=== PATIENT | female | born 1970 | race Caucasian/White ===

== ENCOUNTER 2016-03-22 11:04 | Observation (INO) ==
[~2016-03-22 11:04] MED LIST: *HR* Metoprolol 5 MG/5 ML VIAL IVP ONE
[2016-03-22] MEDS ORDERED: Naloxone 0.4 MG/ML INJ IVP PRN (12:22)
[2016-03-22] MEDS ORDERED: Acetaminophen 325 MG TABLET PO PRN (12:22)
--- NOTE | 2016-03-22 12:34 | Cardiology History & Physical ---
Date of Encounter: 03/22/16 Time of Encounter: 10:00 Assessment and Plan (1) Ventricular tachycardia Current Visit: Yes Status: Acute Per Cardiology: History of PVCs with bigeminy on recent Holter. Significant runs of ventricular tachycardia in recovery phase of exercise nuclear stress test today. Seen and examined with Dr. Vargas with recs for direct admission for further ischemic evaluation in terms of left heart catheterization. Ventricular tachycardia overall improved with IV fluids and his cannula oxygen. Patient did not require fibrillation, resuscitation, denied experiencing any loss of consciousness. Discussed and reviewed with Dr. Chavez and Dr. Omer, labs pending and left heart catheterization today. Has outpatient echocardiogram already completed and awaiting to be read today. The assessment and plan as outlined above was discussed with the patient and/or family members who expressed understanding and agreement. All questions were answered. History of Present Illness Chief complaint: CP HPI: Ms. Huang is a 46 year old female female seen today in outpatient setting during stress test. Patient seen by Dr. Marcia Colunga March 10, 2016 and ordered stress test and echocardiogram. Patient noted to have multiple PVCs on recent Holter and beta linda was increased. She has a relevant past medical history of anxiety with panic attacks, GERD, and PVCs. Additionally, she smokes one pack per day of cigarettes for 36 years. Patient reports had been experiencing short of breath, fatigue, dizziness, and palpitations with chest tightness. During stress test, patient was noted to have significant runs of ventricular tachycardia during recovery. Improved with application of nasal cannula oxygen. Seen with Dr. Vargas. Patient continued to have frequent episodes of nonsustained VT, bigeminy, and trigeminy. Patient directly admitted for further ischemic evaluation today regarding her V. tach. Patient denies any episodes of syncope or falls. Denies any active bleeding or blood loss. Reports has never had cardiac catheterization in the past. Family history reported with father with pacemaker. Past Med Surg Social Fam HX - Past Medical History Attestation: Yes The following information was validated with the patient. Source: patient, old records reviewed, obtained from family Medical history: GERD, other (PVCs) Psychiatric history: anxiety, panic disorder - Past Surgical History Surgical History: no surgical history - Social History Smoking Status: Current every day smoker Packs per day: 1ppd since age 10, has smoked 36 years - Family History Father Hx Family Cardiac Disorders: Yes (pacer) All Systems Review: A 10-system review of systems was performed and is negative for pertinent findings except as documented above in the HPI. - Constitutional Constitutional: fatigue - Cardiovascular Cardiovascular: as per HPI, chest pain with exertion, dyspnea on exertion, lightheadedness - Psychiatric Psychiatric: anxiety, panic attacks Physical Examination Vital Signs, Last 4 Hours Temp Pulse Resp BP Pulse Ox 03/22/16 12:10 99.3 F 95 16 121/77 97 General: Conversant, Other (anxious) HEENT: Atraumatic, Normocephaly, Mucus Membranes Moist Neck: No JVD, Normal carotid pulses Cardiac: Reg Rate and Rhythm, Normal S1 and S2, No Murmur Lungs: Normal Breath Sounds, No Wheeze, Rales, Rhonchi Neuro: Alert and responsive, No focal deficits noted Abdomen: Soft, Non-Tender Skin: No rashes noted on visualized skin Musculoskeletal: No Chest Wall Tenderness Extremities: No Edema, Normal Pulses Results Labs pending Active Medications Acetaminophen (Tylenol) 650 mg PO Q6HR PRN PRN Reason: Mild Pain (1-3) Stop: 09/21/16 12:23 Naloxone HCl (Narcan) 0.4 mg IVP Q2MIN PRN PRN Reason: Opioid Reversal Stop: 09/21/16 12:23 - EKG Interpretation EKG results cardiology: personally reviewed (VT noted during stress test)
[2016-03-22] MEDS ORDERED: Verapamil 5 MG/2 ML VIAL ONE (14:04)
[2016-03-22] MEDS ORDERED: Heparin 1,000 UNITS/500 mL NS 500 ML ONE (14:05)
[2016-03-22] MEDS ORDERED: Nitroglycerin 1,000 MCG/10 ML VIAL IV ONE (14:05)
[2016-03-22] MEDS ORDERED: 0.9 % Sodium Chloride 1,000 ML ONE ×2 (14:05→14:19)
[2016-03-22] MEDS ORDERED: *HR* Heparin 10,000 UNIT/10 ML VIAL ONE (14:05)
[2016-03-22 14:16] LABS: Basophils # 0.1 K/mcL (0.0-0.2); Basophils % 0.4 %; Eosinophils # 0.1 K/mcL (0.0-0.6); Eosinophils % 0.6 %; Hematocrit 40.7 % (35.3-44.9); Hemoglobin 13.8 g/dL (11.5-15.4); Immature Granulocytes % 0.4 % (0-4); Lymphocytes # 3.1 K/mcL (0.6-4.6); Lymphocytes % 22.8 %; Mean Corpuscular HGB Conc 33.9 g/dL (31.6-35.5); Mean Corpuscular Hemoglobin 30.7 pg (28.0-33.3); Mean Corpuscular Volume 90.6 fL (83.0-100.0); Mean Platelet Volume 9.9 fL (9.4-12.4); Monocytes # 0.7 K/mcL (0.0-1.3); Monocytes % 5.2 %; Neutrophils # 9.6 K/mcL (1.6-8.9); Platelet Count 275 K/mcL (140-400); Red Blood Count 4.49 M/mcL (3.82-4.97); Red Cell Distribution Width 11.9 % (11.5-14.5); Segmented Neutrophils % 70.6 %
[2016-03-22 14:21] LABS: INR 1.1; Prothrombin Time 12.1 Seconds (9.4-12.1)
[2016-03-22] MEDS ORDERED: *HR* FentaNYL (PF) 100 MCG/2 ML VIAL ONE (14:28)
[2016-03-22] MEDS ORDERED: *HR* Midazolam HCl 2 MG/2 ML VIAL ONE ×2 (14:28→14:43)
[2016-03-22 14:30] LABS: BUN/Creatinine Ratio 13 (6-26); Blood Urea Nitrogen 8 mg/dL (7-20); Calcium 8.8 mg/dL (8.6-10.8); Carbon Dioxide 19 mEq/L (19-29); Chloride 111 mEq/L (98-109); Glucose 100 mg/dL (70-99); Osmolality,Calculated 284 (280-300); Potassium 3.9 mEq/L (3.5-4.5); Sodium 138 mEq/L (136-145); eGFR For African Americans > 60 (> 60); eGFR For Non-African Americans > 60 (> 60)
--- NOTE | 2016-03-22 15:06 | Invasive Diagnostic Lab Proc ---
Name: Jessica Huang Date of Study: 03/22/2016 Date: 1970 Ht: 66.0in Medical Record#: [id number] Age: 46 Wt: 187.39lb Gender: Female BSA: 1.95 Order #: [id number] BMI: 30.26 Physicians Procedure Physician: Ignacio Omer MD, [facility] Referring MD: Fallon Connolly MD Referring MD: Staff Name Position Time In Karine Castellanos RT Scrub 02:25 PM Lisa Finnegan RN Shooter'S Helper 02:25 PM Sites, Ghislaine RT (R) Monitor 02:25 PM Lisa Finnegan RN Monitor 02:25 PM Indications Indication VT Procedures Performed Procedure L HRT ARTERY/VENTRICLE ANGIO Pre-Procedure Checklist Informed consent is complete signed and on chart. H\\T\\P is on chart. ID band is on and ID verified with patient. Patient NPO for procedure The procedure was described for the patient and questions were answered. ECG is on chart. Plan of Care Patient will tolerate the procedure without complications. Adequate level of comfort will be maintained. Hemodynamics will remain stable Patient will recover from procedure without complications. Respiratory function will be maintained. Cardiac rhythm will remain stable. Patient temperature will be maintained. Patient and/or family have verbalized understanding of the procedure. Patient Education Chief Complaint/Reason for Test: Cardiac Cath Developmental Category: Adult (18-64 years) Developmentally Appropriate for Age: Yes Learning Barriers: None Education Needs: Procedure Education Method: Verbal Information Taught: Cardiac Cath Educational Evaluation: Able to repeat information Intravenous Access Time IV Size Location DC'd Fluid/Drip Rate Units RN 02:23 PM 22g 1" Patent On Arrival Rt Hand 0.9NaCl 25ML/HR Lisa Finnegan RN Allergies NKA PCN (penicillin) Vital Signs Time BP (mmHg) HR (bpm) O2 Sat. RR (bpm) LOC 02:24 PM 121 / 77 95 97 % 16 5 = Fully awake and oriented or at pre-proc level 02:26 PM / % 5 = Fully awake and oriented or at pre-proc level 02:30 PM 128 / 78 89 98 % 02:34 PM 132 / 76 97 97 % 13 02:39 PM 126 / 74 78 98 % 17 02:44 PM 131 / 76 93 97 % 21 02:49 PM 114 / 82 88 95 % 18 Procedural Medications Time Medication Dose Units Method Given By 02:26 PM Oxygen 2 L/min nasal cannula Lisa Finnegan RN 02:30 PM Versed 2 mg Intravenous Lisa Finnegan RN 02:30 PM Fentanyl 50 mcg Intravenous Lisa Finnegan RN 02:38 PM Lidocaine 2% 0.5 ml Subcutaneous Ignacio Omer MD, FAC 02:41 PM Heparin 4000 units Nitroglycerin 200 mcg Verapamil 2.5 mg Intraarterial Ignacio Omer MD, FAC 02:43 PM Versed 2 mg Intravenous Lisa Finnegan RN 02:43 PM Fentanyl 25 mcg Intravenous Lisa Finnegan RN ASA Classification: CLASS II- Mild systemic disease (i.e. well-controlled diabetes, hypertension, asthma, cigarette smoking) Aurelia Score Preprocedure Postprocedure Activity 2- Moves 4 extremities sustained head lift Activity 2- Moves 4 extremities sustained head lift Circulation 2- SBP +/= 20 points of pre-anesthetic level Circulation 2- SBP +/= 20 points of pre-anesthetic level Consciousness 2- Awake and alert oriented x 3 Consciousness 2- Awake and alert oriented x 3 O2 Saturation 2- Able to maintain O2 satruation of 92% on room air O2 Saturation 2- Able to maintain O2 satruation of 92% on room air Respiratory 2- Able to deep breathe and cough well Respiratory 2- Able to deep breathe and cough well Total Score 10 Total Score 10 Contrast Agent: Isovue Diagnostic Contrast: 52 ml Total Contrast: 52 ml Fluoro Dose: 113 mGy Procedure Log Time Note Enter By 02:21 PM CathStat 02:25 PM Pt arrived to [employer] 2 at 14:25 [email or web address] 02:25 PM Physician arrived 14:25 02:25 PM Meet and mary completed 02:25 PM Sign in performed according to hospital policy. 02:25 PM Procedure start 14:25 kk 02:25 PM Karine Castellanos RT Position: Scrub Time in: 14:25 ner 02:25 PM Lisa Finnegan RN Position: Shooter'S Helper Time in: 14:25 kk 02:25 PM Ghislaine Busby RT (R) Position: Monitor Time in: 14:25 [email or web address] 02:25 PM Lisa Finnegan RN Position: Monitor Time in: 14:25 [email or web address] 02:25 PM Patient charges- Angio tray pack, Navilyst 3mm J, Pulse Oximetry and ACIST tubing and transducer Case Delayed No Time: : Oxygen on at 2 L/min per nasal cannula by Lisa Finnegan RN Time: 14: Patient comfortable and pain free: Yes Time: :LOC: 5 = Fully awake and oriented or at pre-proc level Clinical Presentation: Unstable angina PM Vitals capture started with the following parameters, Patient=Adult, Interval=5 min, Initial Rilrscvh=970 mmHg, Deflation Rate=5 mmHg, Cuff placed on Right Arm : PM Vitals capture started with the following parameters, Patient=Adult, Interval=5 min, Initial Fegqpbwa=500 mmHg, Deflation Rate=5 mmHg, Cuff placed on Right Arm : PM Recorded ECG: HR=90 Condition=Condition 1 02: PM NIBP STAT measurement started. : PM Vitals capture stopped. : PM Vitals capture started with the following parameters, Patient=Adult, Interval=5 min, Initial Adfochqg=394 mmHg, Deflation Rate=5 mmHg, Cuff placed on Right Arm 02:30 PM HR=89 bpm, KMVY=308/78 mmhg, SpO2=98.0 % 02:30 PM Time: 14:30 Versed 2 mg Intravenous Given by Lisa Finnegan RN 02:30 PM Time: 14:30 Fentanyl 50 mcg Intravenous Given by Lisa Finnegan RN 02:34 PM HR=97 bpm, SDET=518/76 mmhg, SpO2=97.0 %, Resp=13 B/min 02:35 PM Pressure channel 1 zeroed. 02:38 PM Time out performed according to hospital policy tsites 02:38 PM Time: 14:38 0.5 ml Lidocaine 2% to right radial Subcutaneous Given by Ignacio Omer MD, [facility] tsites 02:39 PM HR=78 bpm, GHLI=008/74 mmhg, SpO2=98.0 %, Resp=17 B/min 02:41 PM Access obtained by percutaneous puncture. 5Fr 10cm Terumo Glidesheath sheath placed in right Radial artery. [id number] tsites 02:41 PM Time: 14:41 Patient given 4,000 units Heparin, 200 mcg Nitroglycerin, and 2.5 mg Verapamil Intraarterial by Ignacio Omer MD, [facility] tsites 02:42 PM 0.035 260cm Navilyst 3mmJ wire [id number] tsites 02:42 PM 5Fr TIG catheter inserted over the wire DN tsites 02:43 PM Wire removed tsites 02:43 PM Time: 14:43 Versed 2 mg Intravenous Given by Lisa Finnegan RN tsites 02:43 PM Time: 14:43 Fentanyl 25 mcg Intravenous Given by Lisa Finnegan RN tsites 02:44 PM HR=93 bpm, PODC=445/76 mmhg, SpO2=97.0 %, Resp=21 B/min 02:44 PM RCA angiography performed in multiple views. tsites 02:44 PM Recorded Pressure: Ao, HR=96, Condition=Condition 1 (Aorta) Ao 110/90/100 02:45 PM wire reinserted catheter removed tsites 02:45 PM 5Fr FL3.5 catheter inserted over the wire [id number] tsites 02:46 PM Wire removed tsites 02:46 PM LCA angiography performed in multiple views. tsites 02:46 PM Recorded Pressure: Ao, HR=88, Condition=Condition 1 (Aorta) Ao 43/27/35 02:48 PM wire reinserted catheter removed tsites 02:48 PM 5Fr Pigtail catheter inserted over the wire DN tsites 02:49 PM HR=88 bpm, SMIF=666/82 mmhg, SpO2=95.0 %, Resp=18 B/min 02:49 PM Lesion found in Mid Circumflex. Pre Stenosis: 20 Pre THADDEUS Flow: tsites 02:49 PM Lesion found in Mid LAD. Pre Stenosis: 15 Pre THADDEUS Flow: tsites 02:49 PM Mid/Distal Left Anterior Descending Coronary Artery and diagonal branches with 15% stenosis. If graft is supplying this area, % stenosis tsites 02:50 PM Recorded Pressure: LV, HR=82, Condition=Condition 1 (Left Ventricle) LV 114/11/40 02:50 PM Recorded Pressure: LV, Ao, US=432, Condition=Condition 1 (Left Ventricle) LV 113/8/27, (Aorta) Ao 125/74/99 02:51 PM Catheter selectively placed in left ventricle tsites 02:51 PM Bolus angiogram of left Ventricle complete: 10 ml/sec for a total of 30 mls tsites 02:51 PM Coronary Dominance: right tsites 02:51 PM Catheter removed tsites 02:51 PM Circumflex, Obtuse Marginal, Left Posterior Descending, and Left Posterolateral Coronary Arteries with 20 % stenosis. If graft is supplying this area, % stenosis tsites 02:51 PM Procedure completed at 14:51 tsites 02:52 PM Sign out completed: Radiation Dose 113 mGy Fluoro Time: 2.2 Isovue 370 - 200ml contrast 52 ml given by Ignacio Omer MD, [facility]. Complications: NoneCardiac Rehab Consult needed: NoConfirmed administered medications: Yes tsites 02:52 PM Isovue 370 - 200ml,1 Bottle(s) used. tsites 02:52 PM Arterial sheath pulled, Vasc Band closure device used and was Successful S/N. tsites 02:52 PM 12 ml air in Vasc Band. tsites 02:53 PM Post ECG NSR tsites 02:54 PM Post Blood Pressure 114/82 tsites 02:54 PM 14:54 Post Pulses Rt Radial 1+ tsites 02:54 PM Information taught Cardiac Cath and Vasc Band tsites 02:54 PM Education needs Procedure, Plan of Care, and Responsibilities of Patient in Care tsites 02:54 PM Learning barriers :None tsites 02:54 PM Education Methods Verbal tsites 02:54 PM Education evaluation Able to repeat information tsites 02:54 PM Site status No bleeding/hematoma - Rt Wrist as reported by Karine Castellanos RT at 14:54 tsites 02:54 PM Opsite applied tsites 02:55 PM Delay to floor No tsites 02:55 PM Patient out of room: 14:55 tsites 02:58 PM Report given to ervin RN Pt taken to 2NE Room #25. 14:58 tsites Complications Complication None Hemodynamics Pressures Site Systolic/A Wave Diastolic/V Wave Mean AO 110 90 100 AO 43 27 35 LV 114 11 40 LV 113 8 27 AO 125 74 99 Post Procedure Information Blood Pressure: 114/82 mmHg Rhythm: NSR Post procedural instructions were given Closure Device Time Device Success/Fail 03/22/2016 2:55:00 PM Mechanical Compression Successful Site Checks Time Location Status Staff Sheath In? Note 02:54 PM Rt Wrist No bleeding/hematoma Karine Castellanos RT Pulses Time Site Pre-Procedure Post-Procedure Note 03/22/2016 2:24:00 PM Bilateral DP \\T\\ PT 2+ 03/22/2016 2:24:00 PM Bilateral radial 2+ 2:54:00 PM Rt Radial 1+ Updated by Ghislaine Kehinde, RT (R) on 03/22/2016 2:59:57 PM Ghislaine Kehinde, RT electronically signed on 03/22/2016 3:02:20 PM with status of Final
--- NOTE | 2016-03-22 15:16 | Invasive Diagnostic Lab ---
Name: Jessica Huang Date of Study: 03/22/2016 Date: 1970 Ht: 167.6 cm /66.0 in Medical Record#: [id number] Age: 46 Wt: 85. kg / 187.39 lb Account/Order#: [id number] Gender: Female BSA: 1.95 Order #: [id number] Fluoro Dose: 113 mGy BMI: 30.26 Procedure Physician: Ignacio Omer MD, [facility] Referring MD: Fallon Connolly MD Referring MD: Procedures Performed: LEFT HEART CATH Indications: VENTRICULAR TACHYCARDIA ABNORMAL STRESS TEST Impressions: Minimal coronary artery disease. The left ventricle is normal and has normal contractility EF 55% Recommendations: Optimal medical therapy of patient's disease. Aggressive risk factor modification. History/Risk Factors: VT anxiety GERD PVS SOB Current/Recent Smoker Procedure Access obtained in the right Radial artery by percutaneous puncture Complications: None Contrast: Isovue 52ml Closure Device: Mechanical Compression Hemodynamics: Pressures Site Systolic/ A Wave Diastolic/ V Wave End Diastolic/ Mean HR AO 110 90 100 96 AO 43 27 35 88 LV 114 11 40 82 LV 113 8 27 122 AO 125 74 99 81 LV Ventriculography Ejection Method: LV Gram Ejection Fraction: 55% Wall Motion: CASTRO Anterobasal Normal Anterolateral Normal Apical: Normal Inferoapical Normal Inferobasal Normal Coronary Dominance: right Lesion Findings/Interventions * Left Main Coronary Artery The LMCA is angiographically free of disease. * Left Anterior Descending There is a 15% stenosis in the Mid LAD. * Circumflex There is a 20% stenosis in the Mid Circumflex. * Right Coronary Artery The RCA is angiographically free of disease. The Right PDA is angiographically free of disease. Updated by Ghislaine Busby RT (R) on 03/22/2016 3:00:40 PM Ignacio Omer MD, FACC electronically signed on 03/22/2016 3:09:54 PM with status of Final
[2016-03-22] MEDS: Clotrimazole/Betameth Dip CRM 45 APPL/45 GM TUBE TP SCH (20:48)
[2016-03-22] MEDS ORDERED: MELATONIN PO SCH (21:00)
[2016-03-22] MEDS ORDERED: PYRIDOXINE HCL PO SCH (21:00)
[2016-03-22] MEDS: ALPRAZolam 0.5 MG TABLET PO PRN (23:28)
[2016-03-23] MEDS ORDERED: *HR* Enoxaparin 40 MG/0.4 ML SYRINGE SQ SCH (06:00)
[2016-03-23] MEDS ORDERED: [UNRECOGNIZED DRUG - OTHER] PO SCH (09:00)
[2016-03-23] MEDS ORDERED: [UNRECOGNIZED DRUG - OTHER] PO SCH (09:00)
[2016-03-23] MEDS ORDERED: VITAMIN E 100 UNIT PO SCH (09:00)
[2016-03-23] MEDS ORDERED: FISH OIL PO SCH (09:00)
[2016-03-23] MEDS ORDERED: BORAGE PO SCH (09:00)
[2016-03-23] MEDS ORDERED: Famotidine 20 MG TABLET PO SCH (09:00)
[2016-03-23] MEDS ORDERED: FLAX PO SCH (09:00)
[2016-03-23] MEDS ORDERED: Aspirin Enteric Coated 81 MG Tablet PO SCH (09:00)
[2016-03-23] MEDS ORDERED: Loratadine 10 MG TABLET PO SCH (09:00)
[2016-03-23] MEDS: Clotrimazole/Betameth Dip CRM 45 APPL/45 GM TUBE TP SCH (09:54)
[2016-03-23] MEDS: ALPRAZolam 0.5 MG TABLET PO PRN (10:01)
--- NOTE | 2016-03-23 10:33 | Cardiology Progress Note ---
Date of Encounter: 03/23/16 Time of Encounter: 10:00 Assessment and Plan (1) Ventricular tachycardia Current Visit: Yes Status: Acute Per Cardiology: History of PVCs with bigeminy on recent Holter. Significant runs of ventricular tachycardia in recovery phase of exercise nuclear stress test today. S/p LHC-- mid circumflex 20% and mid LAD 15% stenosis. Echocardiogram showed EF preserved 60%, mild diastolic dysfunction, no significant valvular dysfunction, no segmental wall motion abnormalities. TSH ok, Mg pending. Telemetry shows no further recurrence of VT. Patient had been taking Lopressor 25 mg every morning 50 mg every evening. Currently on 50 mg by mouth twice a day and currently systolic blood pressure in the 110s. Rhythm strips reviewed and discussed with Dr. Maxx Colunga with recommendations for outpatient cardiac MRI in follow-up for possible EP study. Discussed with Dr. Freitas and babita to proceed with outpatient cardiac MRI. Will have ambulate hallway today and possible discharge today if able. (2) CAD (coronary artery disease) Current Visit: Yes Status: Acute Per Cardiology: Status post catheterization showing nonobstructive CAD. On beta linda and aspirin. Qualifiers: Coronary Disease-Associated Artery/Lesion type: [place] artery [place] vs. transplanted heart: [place] heart Associated angina: without angina Qualified Code(s): I25.10 - Atherosclerotic heart disease of [place] coronary artery without angina pectoris Discussion w patient/family: The assessment and plan as outlined above was discussed with the patient and/or family members who expressed understanding and agreement. All questions were answered. Thank you for involving us in the care of your patient. Please call with any questions. Subjective Principal diagnosis: VT Interval history: Patient denies any concerns or complaints overnight. Denies any chest pain, short of breath, dizziness, syncope, falls. Denies any concerns with her right wrist site. Objective Vital Signs, Last 4 Hours Temp Pulse Resp BP Pulse Ox 03/23/16 09:45 94 L 03/23/16 08:30 98.4 F 03/23/16 07:13 100.0 F H 86 20 115/66 94 L General: Conversant, No Apparent Distress HEENT: Atraumatic, Normocephaly, Mucus Membranes Moist Cardiac: Reg Rate and Rhythm, Normal S1 and S2, No Murmur Lungs: Normal Breath Sounds, No Wheeze, Rales, Rhonchi Neuro: Alert and responsive, No focal deficits noted Skin: No rashes noted on visualized skin, Other (Right wrist site dry and intact , no hematoma, no ecchymosis, no bleeding, right radial pulse 1+ palpable) Results 03/22/16 14:02 03/22/16 14:02 Lab Results Laboratory Tests 03/22/16 14:02 TSH 1.239 Active Medications Acetaminophen (Tylenol) 650 mg PO Q6HR PRN PRN Reason: Mild Pain (1-3) Stop: 09/21/16 12:23 Last Admin: 03/22/16 16:28 Dose: 650 mg Alprazolam (Xanax) 0.5 mg PO TID PRN; Protocol PRN Reason: Anxiety Stop: 09/21/16 14:42 Last Admin: 03/23/16 10:01 Dose: 0.5 mg Aspirin (Aspirin Ec) 81 mg PO DAILY [facility] Stop: 09/22/16 09:01 Last Admin: 03/23/16 09:52 Dose: 81 mg Betamethasone/Clotrimazole (Lotrisone Crm) 1 appl TP BID [facility] Stop: 09/21/16 21:01 Last Admin: 03/23/16 09:54 Dose: 1 appl Enoxaparin Sodium (Lovenox) 40 mg SQ 0600 [facility] PRN Reason: Protocol Stop: 09/22/16 06:01 Last Admin: 03/23/16 05:21 Dose: Not Given Famotidine (Pepcid) 40 mg PO DAILY [facility] Stop: 09/22/16 09:01 Last Admin: 03/23/16 09:51 Dose: 40 mg Hydrocortisone (Cortaid) 1 appl TP BID [facility] PRN Reason: Protocol Stop: 09/21/16 21:01 Last Admin: 03/23/16 09:52 Dose: Not Given Loratadine (Claritin) 10 mg PO DAILY [facility] PRN Reason: Protocol Stop: 09/22/16 09:01 Last Admin: 03/23/16 09:52 Dose: 10 mg Metoprolol Tartrate (Lopressor) 50 mg PO BID [facility] Stop: 09/21/16 21:01 Last Admin: 03/23/16 09:52 Dose: 50 mg Naloxone HCl (Narcan) 0.4 mg IVP Q2MIN PRN PRN Reason: Opioid Reversal Stop: 09/21/16 12:23 Pharmacy Profile Note (Patient Taking Own Medication) 1 each PO DAILY [facility] Stop: 09/22/16 09:01 Last Admin: 03/23/16 09:53 Dose: Not Given Pharmacy Profile Note (Patient Taking Own Medication) 1 each PO DAILY [facility] Stop: 09/22/16 09:01 Last Admin: 03/23/16 09:53 Dose: Not Given Pharmacy Profile Note (Patient Taking Own Medication) 1 each PO HS [facility] Stop: 09/21/16 21:01 Last Admin: 03/22/16 20:48 Dose: Not Given Pharmacy Profile Note (Patient Taking Own Medication) 1 each PO DAILY [facility] Stop: 09/22/16 09:01 Last Admin: 03/23/16 09:53 Dose: Not Given - Imaging and Cardiology Echo: report reviewed Cardiac cath: report reviewed - EKG Interpretation EKG results cardiology: other (24 hour telemetry reviewed with average heart rate 85, occasional PVCs with bigeminy and trigeminy, no significant runs of ventricular tachycardia noted) Consult Discharge Plan - Plan Referrals: Fallon Connolly MD [Primary Care Provider] -
[2016-03-23 11:05] VITALS: BP 115/70
--- NOTE | 2016-03-23 13:07 | Discharge Summary ---
Date of Encounter: 03/23/16 Time of Encounter: 13:00 - Discharge Diagnosis (1) Ventricular tachycardia Priority: Primary Status: Resolved Comments: No recurrent VT with ambulating and higher dose of BB. (2) CAD (coronary artery disease) Priority: Secondary Status: Acute Comments: Nonobstructive CAD Qualifiers: Coronary Disease-Associated Artery/Lesion type: [place] artery [place] vs. transplanted heart: [place] heart Associated angina: without angina Qualified Code(s): I25.10 - Atherosclerotic heart disease of [place] coronary artery without angina pectoris - Discharge Medications Home Medications: Alprazolam [Xanax 0.5 MG Tablet] 0.5 - 1 mg PO TID PRN 03/22/16 [History] Clotrimazole/Betameth Dip CRM [Lotrisone CRM] 1 appl TP BID 03/22/16 [History] Fish Oil/Borage/Flax/Om3,6,9#1 [[place]oppa 3-6-9 1,200 mg Softgel] 1,200 mg PO DAILY 03/22/16 [History] Glucosamn/[place]n/C/Mn/[place] [[facility] Glucosamine Chondroitin Tb] 1 tab PO DAILY 03/22/16 [History] Hydrocortisone 1% CREAM [Cortaid] 1 appl TP BID 03/22/16 [History] Loratadine [Allergy Relief] 10 mg PO DAILY 03/22/16 [History] Melatonin/Pyridoxine HCl (B6) [Melatonin 3 mg Tablet] 3 mg PO HS 03/22/16 [ History] Ranitidine HCl [Zantac] 150 mg PO BID PRN 03/22/16 [History] Vitamin E 100 unit PO DAILY 03/22/16 [History] Aspirin Enteric Coated [Aspirin EC] 81 mg PO DAILY tablet. 03/23/16 [Rx] Metoprolol [Lopressor] 50 mg PO BID tablet 03/23/16 [Rx] Allergies/Adverse Reactions: Allergies Penicillins [PCN] Allergy (Verified 03/22/16 12:59) Rash patient states she gets a "yeast infection" Procedures/tests Complete & Pending: Procedures Performed prior 72 hours Category Date Time Status CL Cardiac Catheterization [CL] Routine Business Services Intern 03/22/16 12:25 Completed ECG 12 lead ECG [ECG] AM 0600 Y 03/23/16 06:00 Ordered Date of admission: 03/22/16 11:59 Primary care physician: Fallon Connolly Consults: 03/22/16 19:21 Consult to Slot Supervisor [CONS] Routine Reason for SW Consult: patient has no insurance may possibly have HCAP? Discharging clinician: Servando Rosas Anticipated date of discharge: 03/23/16 - Patient Status Disposition: Home, Self-Care Condition: Fair Functional capacity at discharge: independent ambulation Overall status at discharge: patient is progressing back to baseline - Discharge Instructions Follow Up With: Fallon Connolly MD [Primary Care Provider] - Additional Instructions: see f/u as ordered RISK FACTORS: STOP SMOKING: If you smoke, STOP. Smoking or tobacco use significantly increases your risk of heart disease because nicotine causes the arteries to narrow or constrict. It also causes fats to stick to the artery. Your chances of having a heart attack are greatly increased if you continue to smoke. For more information, call the education line for smoking cessation [id number] EAT A LOW FAT/CHOLESTEROL/SODIUM DIET: This diet may help reduce your chances of having a heart attack. LIFTING: With affected extremity: Avoid bending, pushing off and lifting more than 2 pounds for 24 hours The following 48 hours, avoid lifting anything more than 5 pounds Avoid strenuous activity or repetitive motions ACTIVITY: You may walk or climb stairs as tolerated You can resume sexual activity as tolerated In general, you are encouraged to engage in a minimum of 30 minutes or more of moderate intensity physical activity, such as brisk walking, daily or at least 3 -4 times weekly BATHING Do not submerge the site into water (bath tub, hot tub, swimming pool, dishes) for 1 week. This can be a source for infection into the blood stream. You may shower after 24 hours SITE CARE: After 24 hours, you may remove the dressing and leave the site open to air. Keep the site clean and dry. Clean gently and pat dry. You can expect bruising and tenderness that gradually resolve within a week or two. Return to work as instructed per your physician Resume driving as instructed per physician Keep all scheduled follow up appointments Resume medications as instructed IMPORTANT: If prescribed a Platelet Aggregation Inhibitor such as, Plavix, Brilinta or Effient: Duration of therapy is minimum one year These medications are often used in combination with Aspirin in prevention of future heart attacks Never discontinue unless consult with your Boat Detailer STROKE (CVA) Risk factors for a stroke are: Age, cigarette smoking, diabetes, excessive alcohol consumption, family history, high blood pressure, overweight, physical inactivity, prior stroke, heart attack, diagnosis of carotid artery stenosis or other artery disease. Warning signs: Sudden numbness or weakness of the face, arm or leg; especially on one side of the body, sudden confusion, trouble speaking or understanding, sudden trouble seeing in one or both eyes, sudden trouble walking, dizziness, loss of balance or coordination, sudden severe headache with no cause. Call 911 or go to the Emergency Room. CONGESTIVE HEART FAILURE: If you have been diagnosed with Congestive Heart Failure (CHF) and your symptoms return, make an appointment with your physician Weigh yourself daily. Notify your physician if you have a weight gain of two or more pounds in one day or five or more pounds in one week. If you experience any difficulty breathing, please call 911 BLEEDING: Although the risk of bleeding is minimal, it can happen. If you have any bleeding from the site, apply firm pressure above the puncture site for 10-15 minutes. If the bleeding does not stop, continue manual pressure and call 911 Contact [facility] ( ) if: You develop a fever greater than 101 degrees Fahrenheit Your site becomes reddened or has any drainage You have an increase in pain or burning at the site or if a large knot forms at the site. If you experience chest pain, shortness of breath, dizziness, or extreme tiredness, stop the activity and rest. Please notify [facility] office if you experience any of these symptoms and they are not relieved by rest please call 911! - Diet and Activity Activity: other (encouraged to not drive and limit exertional activity) Diet: low fat, low cholesterol, low salt diet - Hospital Course Hospital course: Ms. Huang is a 46 year old female admitted for ventricular tachycardia during recovery phase of exercise nuclear stress test. During hospital stay electrolytes, magnesium, TSH have been normal. Patient underwent left heart catheterization which showed nonobstructive CAD with mid circumflex 20% and mid LAD 15% stenosis. Echo showed preserved EF 60%, no segmental wall motion abnormalities, no significant valvular dysfunction. Lopressor has been increased to 50 mg by mouth twice a day (was only taking 25mg in am and 50mg in pm). SBP 100's - 110's. Telemetry reviewed with no further recurrence of VT, intermittent PVCs with bigeminy at times. Has ambulated hallway without any difficulty. Patient reviewed and discussed with Dr. Chavez, Dr. Maxx Colunga, Dr. Renay Colunga, and Dr. Freitas. Okay to DC to home today. Encourage no driving until seen in cardiology office. Education provided regarding right wrist post cath care. Discharged home in stable condition. Cardiac MRI being coordinated by cardiology office in outpatient setting. - Time Spent with Patient Total time spent providing and/or coordinating discharge services: Less than 30 minutes Physical Examination Vital Signs, Last 4 Hours Temp Pulse Resp BP Pulse Ox 03/23/16 10:59 98.6 F 74 20 115/70 96 03/23/16 09:45 94 L General: Conversant, No Apparent Distress Cardiac: Reg Rate and Rhythm, Normal S1 and S2, No Murmur Lungs: Normal Breath Sounds, No Wheeze, Rales, Rhonchi Skin: No rashes noted on visualized skin
== END 2016-03-23 14:55 | disposition home or self-care (01) ==
LOC: 2NENU
PROVIDERS: ADMIT Nurse Practitioner Adult Health; ATTEND Internal Medicine